=== PATIENT | male | born 1950 | race Caucasian/White ===

== ENCOUNTER → 2021-07-18 | Outpatient (CLI) | payer OTHER ==
[~2021-07-18] MED LIST: AMLODIPINE BESY10 MG PO; ASA81BEC PO; EUTHYROX137 MCG PO; FISH OIL 1,0001 EAC9 PO; LIPITOR 40 MG T40 M1 PO; LOSARTAN POTAS100 MG PO; METOPROLOL SUC200 MG PO; PRILOSEC OTC20 MG PO
[2021-07-18 11:40] LABS: HEMATOCRIT 41.5 % (42.0-52.0); MCH 31.6 pg (26.0-34.0); MCHC 33.6 g/dL (28.0-37.0); MCV 93.8 fL (80.0-100.0); RBC 4.42 mil/uL (4.50-6.00); RDW 14.3 % (10.5-14.5); WBC 5.8 thou/uL (4.0-11.0)
[2021-07-18 11:47] LABS: URINE BILIRUBIN NEGATIVE (Negative); URINE BLOOD NEGATIVE (Negative); URINE CLARITY CLEAR; URINE COLOR YELLOW; URINE GLUCOSE-RANDOM* NEGATIVE (Negative); URINE KETONES NEGATIVE (Negative); URINE LEUKOCYTES-REFLEX NEGATIVE (Negative); URINE NITRITE-REFLEX NEGATIVE (Negative); URINE PROTEIN (DIPSTICK) NEGATIVE (Negative)
[2021-07-18 11:51] LABS: ALBUMIN 3.7 g/dL (3.4-5.0); CALCIUM 8.8 mg/dL (8.5-10.1); CREATININE 0.8 mg/dL (0.7-1.3)
[2021-07-18 11:55] LABS: PROTIME 10.9 Seconds (10.5-12.1)
== END | disposition home or self-care (01) ==
LOC: PAC 10:26
PROVIDERS: ATTEND Orthopaedic Surgery
DX: Z01.818 Encounter for other preprocedural examination (principal); M17.11 Unilateral primary osteoarthritis, right knee

== ENCOUNTER 2021-07-23 12:08 | Observation (INO) | payer OTHER ==
[~2021-07-23] VITALS: Ht 177.8 cm; Wt 102.1 kg
[2021-07-23 14:06] VITALS: BP 140/63
[2021-07-23 20:35] VITALS: BP 107/71
--- NOTE | 2021-07-23 21:25 | NUR ---
PT ADMITTED TO UNIT AT APPROXIMATELY 1900. PT IS A/O X4 AND IS ON ROOM AIR. CURRENTLY ON BEDREST AWAITING PT EVALUATION IN THE AM. DRSG TO RIGHT KNEE IS C/D/I. FALL PRECAUTIONS IN PLACE, CALL LIGHT IS WITHIN REACH. ADMISSION HAS BEEN COMPLETED. PT HAS BEEN EDUCATED ON THE USE OF CALL LIGHT AND BED CONTROLS.
[2021-07-24 04:38] VITALS: BP 94/72
[2021-07-24 07:53] VITALS: BP 113/71
--- NOTE | 2021-07-24 08:40 | O ---
[facility] [place] [address] OPERATIVE REPORT Name: JORGE CRESPO Room #: [id number] Admission: 07/23/21 Attend Phys: Brian Olivera MD Discharge: Date of : 46 Report #: [id number] THIS REPORT FOR: cc: Jose Cruz Javier Brian J. DO Abraham, Scott M. MD ~ DATE OF SERVICE: 07/23/2021 PREOPERATIVE DIAGNOSIS: Right knee osteoarthritis. POSTOPERATIVE DIAGNOSIS: Right knee osteoarthritis. PROCEDURE: Right total knee arthroplasty using NAVIO robotic assistance. SURGEON: Brian Olivera MD OCCUPATIONAL THERAPY MANAGER: Dulce Dailey PA-C INDICATION FOR OCCUPATIONAL THERAPY MANAGER: Throughout the case, extensive retraction and manipulation of the knee was required. This was afforded to me by my bilingual sales assistant. ANESTHESIA: LMA with adductor canal block. IMPLANTS: A [employer] size 7, Journey II BCS cobalt chrome femur, size 6 tibia, size 12 constrained polyethylene and size 35 patella. TOURNIQUET TIME: 63 minutes. ESTIMATED BLOOD LOSS: 25 mL. COMPLICATIONS: None. SPECIMENS: None. CONDITION UPON LEAVING THE OR: Stable. INDICATIONS FOR PROCEDURE: The patient is a 70-year-old gentleman with severe right knee osteoarthritis. He had failed conservative measures for this and after discussion with him, he elects for right total knee arthroplasty. DESCRIPTION OF PROCEDURE: Risks, benefits, alternatives, complications were discussed with the patient including but not limited to risk of anesthesia, risk of damage to nerves, arteries, blood vessels, risk for infection, bleeding, risk for continued knee pain, and need for reoperation. Informed consent was obtained from the patient. Right knee was appropriately marked in the preoperative holding area. IV Ancef was given for preoperative antibiotics. He [address] [address] OPERATIVE REPORT Name: JORGE CRESPO Room #: 444-P [facility] Valerie Torres#: [id number] Admission: 07/23/21 Attend Phys: Brian Olivera MD Discharge: Date of : 46 Report #: [id number] was brought to the operating room and placed in supine position on the operating room table. LMA anesthesia was induced without complication. Tourniquet was placed on the right thigh. Right lower extremity was prepped and draped in normal sterile fashion. Timeout was performed properly identifying the patient and procedure as well as the instrumentation and implants. All in the operating room were in agreement. Right lower extremity was exsanguinated and tourniquet was inflated. Tourniquet time was 63 minutes. Standard midline approach to the knee was made with #10 blade through the skin. Dissection was taken down sharply to the fascia and deep flaps were developed medially and laterally. Fresh 10 blade was used to make a medial parapatellar arthrotomy and the knee was inspected. There was severe tricompartmental osteoarthritis. ACL and PCL were removed sharply. Reference pins were placed in the femur and the tibia. The knee was digitally mapped using the [employer] robotic system. Intraoperative plan was made. We sized to a size 7 femur, to size 6 tibia and a 10 spacer. After acceptance of the intraoperative plan, the distal femoral cut was made with the NAVIO bur. Distal femoral cutting block was pinned in place and chamfer cuts were made. Attention was turned to the tibia. Remainder of the menisci were removed with Bovie cautery. Tibial resection guide was pinned in place using NAVIO for placement and tibial resection was made. Flexion and extension gaps were checked and found to be tight medially in extension. A medial osteophyte was removed from the medial tibial plateau and a limited medial release was performed using the pie crust technique. This balanced the knee well. Tibia was sized, found to be a size 6. The 6 tibial trial was placed, pinned and punched. A size 7 femoral trial was placed and box cut was made. This was then trialed with a size 10 up to a size 12 polyethylene. The size 12 polyethylene demonstrated 1-2 mm of laxity medially and laterally throughout range of motion of the knee in deep flexion. It did demonstrate up to 3 mm of laxity medially. It is felt we can make up for this with a constrained implant. 9 mm of bone was resected from the posterior surface of the patella and a size 35 patellar trial button was placed. Knee was taken through range of motion, found to be stable, and found to have good patellar tracking. Trial components were removed. Bone ends were thoroughly irrigated with normal saline. Final final size 6 tibia, size 7 Journey II BCS cobalt chrome femur and a size 35 patella were cemented in place using standard cementation techniques. While the cement cured, a periarticular injection consisting of morphine, ropivacaine, epinephrine, and Toradol was placed around the knee joint capsule. After the cement cured, the tourniquet was deflated. Hemostasis was obtained with Bovie cautery. A final size 12 constrained polyethylene was placed. A gram of vancomycin was placed deep in the joint. Fascia was closed with 0 Vicryl. Skin was closed with 2-0 Vicryl and 3-0 Monocryl. Dermabond and a DARION dressing was applied. The patient tolerated [address] [address] OPERATIVE REPORT Name: JORGE CRESPO Room #: 444-P [facility] Brian#: [id number] Admission: 07/23/21 Attend Phys: Brian Olivera MD Discharge: Date of : 46 Report #: [id number] this procedure well and went to recovery room under care of Anesthesia postoperatively. <ELECTRONICALLY SIGNED> By: Brian Olivera MD 07/24/21 0840 [id number] Brian Olivera MD /nt
--- NOTE | 2021-07-24 09:40 | NUR ---
70 year old male admitted for an elective Right Knee arthroplasty with NAVIO robotic assist. Per assessment the patient pre and post operatively remains A&O x4. The patient currently lives independently with spouse Ridge at [phone]. CM will monitor for therapy recommendations as well as agreement of discharge plan and needs per orthopedics. Iván visited with justyna at bedside, he had just finished working with physical therapy. Independent. A & o x 4. Has walker already. He as outpatient therapy set up at [facility] in [facility] on 07/25/21. No anticipated needs. Dc home today.
--- NOTE | 2021-07-24 09:56 | NUR ---
ASSUMED PT CARE THIS AM. PT IS ALERT & ORIENTED X4. PT HAS IV SITE ON R HAND RUNNING D5 1/2 NS @100 ML/HR. PT HAS POLAR PACK, BILATERAL KNEE HIGH BRANDO HOANG, SCD. PT USES CPAP AT NIGHT AND RA DURING DAY. PHYSICAL THERAPY WAS WORKING WITH PT THIS AM. PER PT OK AND SAFE FOR DC. PT TOLERATED DIET AND MEDICATION WELL. WILL CONTINUE TO MONITOR PT. FOLLOW POC.
[2021-07-24 10:45] VITALS: BP 113/71
== END 2021-07-24 13:47 | disposition home or self-care (01) ==
LOC: OR → TBA 12:12 → OR 18:59 → 4S 19:00
PROVIDERS: ADMIT Orthopaedic Surgery; ATTEND Orthopaedic Surgery
DX: M17.11 Unilateral primary osteoarthritis, right knee (principal); Z20.822 Contact with and (suspected) exposure to COVID-19; I10 Essential (primary) hypertension; I25.10 Atherosclerotic heart disease of native coronary artery without angina pectoris; E78.5 Hyperlipidemia, unspecified; Z79.899 Other long term (current) drug therapy
CPT/HCPCS: 50010; 50101; 50415; 50954; 51130; 51225; 51320; 52001; 52282; 53000; 53078; 54118; 56527; 56528; 57095; 57103; 57110; 57127; 57180; 58239; 62110; 62900; 64039; 70005